=== PATIENT | male | born 1960 | race Caucasian/White ===

== ENCOUNTER 2022-07-01 09:51 | Emergency (ER) | payer SELFPAY ==
[2022-07-01] MEDS ORDERED: Boostrix 0.5 ML (Tdap) VIAL (>/=7 yrs of age) ONE (10:05)
[2022-07-01] MEDS ORDERED: Lidocaine 1% (PF) 30 ML VIAL ONE (10:09)
[2022-07-01] MEDS ORDERED: traMADol HCl 50 MG TAB ONE (11:21)
[2022-07-01] MEDS ORDERED: Amoxicillin/Potassium Clav 875 MG TAB ONE (11:21)
== END 2022-07-01 11:28 | disposition home or self-care (01) ==
LOC: NAV ERS 09:51
DX: S68.123A Partial traumatic metacarpophalangeal amputation of left middle finger, initial encounter (principal); S68.121A Partial traumatic metacarpophalangeal amputation of left index finger, initial encounter; W26.8XXA Contact with other sharp object(s), not elsewhere classified, initial encounter
CPT/HCPCS: 12001; 90471; 90715; J2001